=== PATIENT | male | born 2000 | race Caucasian/White ===

== ENCOUNTER 2021-05-07 11:58 | Emergency (ER) | payer BC, SELFPAY ==
[2021-05-07 12:05] VITALS: BP 127/66; PULSE 121; RESP 16; TEMP 37.6; O2SAT 100
--- NOTE | 2021-05-07 12:52 | ED.ABDPAIN ---
HPI - Abdominal Pain General Chief Complaint: Nausea/Vomiting/Diarrhea Stated Complaint: vomiting/diarrhea/abdominal pain/chills Time Seen by Provider: 05/07/21 12:00 Source: patient Mode of arrival: ambulatory Limitations: no limitations History of Present Illness HPI narrative: 20-year-old male presents to [facility] with complaints of generalized abdominal cramping, nausea, vomiting, diarrhea, fever, body aches and chills for the past 2 days. Patient reports that he has been unable to keep fluids down for the past 2 days. Patient denies sick contacts. Patient denies recent travel. Patient is a smoker. Patient denies dizziness, blurred vision, chest pain or shortness of breath. MD elicited complaint: abdominal pain Onset (ago): day(s) (2) Quality: cramping Exacerbating factors: nothing Relieving factors: nothing Associated symptoms: nausea, vomiting, diarrhea, fever and chills Related Data Home Medications Medication Instructions Recorded Confirmed Imodium A-D 10/22/19 Allergies Allergy/AdvReac Type Severity Reaction Status Date / Time No Known Allergies Allergy Verified 10/22/19 13:35 Review of Systems Constitutional: Constitutional: Reports chills, Reports fatigue, Reports fever(s) and Denies weakness ENT: Denies dysphagia, Denies epistaxis and Denies sore throat Cardiovascular: Cardiovascular: Denies chest pain and Denies radiating jaw, neck or arm pain Respiratory: Respiratory: Denies cough, Denies dyspnea and Denies wheezing Gastrointestinal: Gastrointestinal: Reports abdominal pain, Denies bloating, Denies constipation, Denies heartburn, Reports diarrhea, Reports nausea and Reports vomiting Genitourinary: Genitourinary: Denies hematuria, Denies oliguria, Denies dysuria and Denies urinary frequency Integumentary/Breasts: Skin/Breast: Denies rash Neurologic: Denies syncope [facility] Surgical History Surgical History (Updated 05/07/21 @ 12:54 by Stephanie Ga APRN) H/O lithotripsy History of placement of ear tubes Family History Family History (Updated 05/07/21 @ 12:54 by Stephanie Ga APRN) Mother Cervical cancer Social History Social History (Updated 05/07/21 @ 12:54 by Stephanie Ga APRN) Smoking status: Current every day smoker Gender identity (if verbalized by the patient): Male Comments At time of signature, I agree with nursing past medical, surgical, social and family history. There is no relevant family history pertinent to the presenting complaint. Exam Const: General: no acute distress and ill appearing Neck: Neck: normal visual inspection Resp: Effort & Inspection: normal respiratory effort, not labored and not tachypneic Auscultation: clear to auscultation bilaterally Cardio: Rate: not bradycardic and tachycardic Rhythm: regular rhythm Heart sounds: no murmurs GI: GI Palp: Yes Soft to palpation, Yes Tenderness to palpation present (GI) (Mild tenderness noted to right lower quadrant upon palpation), No Rigid due to palpation, No Hernia present and No Palpable mass present Auscultation: normal bowel sounds Back/Spine/Pelvis: Back: no CVA tenderness Skin: General skin exam: normal color Rashes: no rashes Wounds: no wounds Neuro: General: patient oriented x3 and moves all extremities Speech: normal speech Psych: Appearance: grossly normal Affect: normal affect Attitude: cooperative Thought content: Yes Normal thought content present Course Vital Signs Vital signs: Vital Signs Temperature 37.6 C H 05/07/21 12:05 Pulse Rate 121 H 05/07/21 12:05 Respiratory Rate 16 05/07/21 12:05 Blood Pressure 127/66 05/07/21 12:05 Pulse Oximetry 100 05/07/21 12:05 Temperature 37.6 C H 05/07/21 12:05 Pulse Rate 121 H 05/07/21 12:05 Respiratory Rate 16 05/07/21 12:05 Blood Pressure 127/66 05/07/21 12:05 Pulse Oximetry 100 05/07/21 12:05 Transfer Transfered to: Emiliano Transfer rationale: Abdominal pain, elevated heart
== END 2021-05-07 13:15 | disposition short-term general hospital (02) ==
PROVIDERS: Emergency Provider Nurse Practitioner Family
DX: R10.84 Generalized abdominal pain (principal); R11.2 Nausea with vomiting, unspecified
CPT/HCPCS: 81003; 99212; G0463

== ENCOUNTER 2021-05-07 13:16 | Emergency (ER) | payer BC, SELFPAY ==
[2021-05-07] VITALS (19 sets, daily range): BP systolic 97–124; BP diastolic 45–73; PULSE 78–98; RESP 18–20; TEMP 36.3; O2SAT 99–100
--- NOTE | ~2021-05-07 | CT_ITS ---
EXAMINATION: CT abdomen pelvis w con DATE: 05/07/2021 17:27 INDICATION: Generalized abdominal pain for 2 days TECHNIQUE: Computed tomography (CT) of the abdomen and pelvis was performed with 100 cc Omnipaque 350 intravenous contrast. The dose-length product was 568.57 mGy-cm. Automated exposure control and iter ative reconstruction technique were employed. COMPARISON: None. FINDINGS: Lung bases are unremarkable. Heart size normal. There is gynecomastia. No significant pleur al or pericardial effusion. The liver, spleen, pancreas, adrenal glands and kidneys are unremarkable. No significant vascular abnormality. No lymphadenopathy. Circumaortic left renal veins. Colonic dive rticulosis without evidence for diverticulitis. Normal appendix. Trace free fluid in the pelvis, nons pecific. No free air is identified. There is splenomegaly. Gallbladder is contracted. There is a Schm orl's node inferior endplate T11 with mild wedge shaped appearance to T11, likely chronic or developm ental. No acute osseous abnormality. IMPRESSION: 1. No acute abdominal abnormality. 2: Splenomegaly. 3: Trace free fluid in the pelvis,, nonspecific. 4: Gynecomastia. Reviewed, dictated and finalized at location A.
[2021-05-07 14:06] LABS: Basophils Percent Auto 0.6 % (0.2-1.2); Eosinophils Percent Auto 0.6 % (0-4.4); Hematocrit 46.1 % (42.0-52.0); Immature Granulocyte Absolute 0.01 K/mm3 (0.00-0.031); Immature Granulocyte Percent A 0.2 % (0-0.5); Lymphocytes Percent Auto 24.4 % (18.3-44.2); Mean Corpuscular HGB Conc 34.7 g/dl (32-36); Mean Corpuscular Hemoglobin 32.1 pg (26-34); Mean Corpuscular Volume 92.6 fl (80-100); Mean Platelet Volume 9.6 fl (7.4-10.4); Monocytes Absolute Auto 0.5 K/mm3 (0.1-0.6); Monocytes Percent Auto 9.8 % (2.6-8.5); Neutrophils Absolute Auto 3.2 K/mm3 (1.3-6.7); Neutrophils Percent Auto 64.4 % (45.5-73.1); Platelet Count Result 262 k/mm3 (150-375); Red Blood Count 4.98 M/mm3 (4.6-6.20); Red Cell Distribution Width 12.8 % (11.5-14.5); White Blood Count 4.9 K/mm3 (4.5-10.0)
[2021-05-07 14:09] LABS: Alanine Aminotransferase 10 U/L (4-50); Albumin Level 4.5 g/dL (3.5-5.1); Alkaline Phosphatase 54 U/L (38-126); Anion Gap 9 mmol/L (8-16); Aspartate Amino Transferase 20 U/L (17-59); Bilirubin,Total 0.5 mg/dL (0.2-1.3); Blood Urea Nitrogen 10 mg/dL (9-20); Calcium 9.4 mg/dL (8.4-10.2); Carbon Dioxide 25 mmol/L (22-30); Chloride 105 mmol/L (98-107); Estimated CRCL calculation 141 ml/min; Estimated Glomerular Filt Rate > 60; Glucose 102 mg/dL (75-110); Lipase 33 U/L (23-300); Potassium 3.9 mmol/L (3.4-5.0); Sodium 139 mmol/L (137-145)
[2021-05-07 14:46] LABS: Add Urine Microscopic? NO; Appearance Urine Clear (Clear); Bilirubin Urine Negative (Negative); Blood Urine Negative (Negative); Color Urine Yellow (Yellow); Glucose Urine UA Negative (Negative); Ketones Urine Negative (Negative); Leukocyte Esterase Ur Negative LEU/UL (Negative); Nitrate Urine Negative (Negative); Protein Urine Negative (Negative); Specific Grav Ur 1.028 (1.001-1.035); Urobilinogen Urine Negative mg/dL (<2.0)
--- NOTE | 2021-05-07 15:46 | PC.NURSE ---
girlfriend called to speak with a nurse, she states that her boyfriend has been in waiting room for 2 hours and he has appendicitis. Informed girlfriend we will get him back as soon as possible, that he has been triaged and some blood work completed.
[2021-05-07] MEDS: SODIUM CHLORIDE 0.9% IV 1,000 ML 999 ML IV CONT (16:55)
--- NOTE | 2021-05-07 18:11 | ED.ABDPAIN ---
HPI - Abdominal Pain General Chief Complaint: Abdominal Pain Stated Complaint: Diarrhea/vomiting Time Seen by Provider: 05/07/21 16:39 Source: patient and family Mode of arrival: ambulatory Limitations: no limitations History of Present Illness HPI narrative: Patient is 20 years old white female presents to the ED with nausea, vomiting and diarrhea started 2 nights ago, today been having mid abdominal cramps-like pain, associated with vomiting. Diarrhea resolved after 24 hours. Patient denies any fever, chills, chest pain, shortness of breath, headache. Related Data Home Medications Medication Instructions Recorded Confirmed Imodium A-D 10/22/19 Allergies Allergy/AdvReac Type Severity Reaction Status Date / Time No Known Allergies Allergy Verified 10/22/19 13:35 Review of Systems Review of Systems: Narrative: CONSTITUTIONAL: Denies fever, chills, or sweats. EYES: Denies visual changes, redness, or discharge. ENT: Denies rhinorrhea, congestion, sore throat, or otalgia. CARDIOVASCULAR: Denies chest pain, palpitations, or edema. RESPIRATORY: Denies cough or dyspnea. GASTROINTESTINAL: Denies abdominal pain, nausea, vomiting, or diarrhea. GENITOURINARY: Denies dysuria or hematuria. SKIN: Denies rash or itching. MUSCULOSKELETAL: Denies back pain, joint pain, or myalgia. NEUROLOGIC: Denies headache, numbness, or weakness. PSYCHIATRIC: Denies anxiety or depression. PMFSH Surgical History Surgical History H/O lithotripsy History of placement of ear tubes Family History Family History Mother Cervical cancer Social History Social History Smoking status: Current every day smoker Gender identity (if verbalized by the patient): Male Exam Narrative: Exam Narrative: General appearance: Well-developed, well-nourished Skin: Normal color Head: Normocephalic, nontraumatic Eyes: Clear conjunctiva ENT: Oropharynx normal, ears normal, nose normal Neck: Supple, nontender Chest and respiratory: Airway patent, no respiratory distress, no accessory muscle use Heart: Regular rate/rhythm Abdomen: Soft, nontender, no organomegaly, quiet bowel sounds Vascular: Normal peripheral pulses, normal capillary refill. Musculoskeletal: Normal range of motion, nontender back Neurologic: Alert and oriented ?3, OTOLARYNGOLOGY NURSE is normal as tested, no gross motor deficit Course Course Emergency Course: Stable Vital Signs Vital signs: Vital Signs Temperature 36.3 C L 05/07/21 13:46 Pulse Rate 92 05/07/21 13:46 Respiratory Rate 18 05/07/21 13:46 Blood Pressure 115/60 05/07/21 13:46 Pulse Oximetry 100 05/07/21 13:46 Temperature 36.3 C L 05/07/21 13:46 Pulse Rate 78 05/07/21 16:01 Respiratory Rate 18 05/07/21 16:01 Blood Pressure 110/45 L 05/07/21 17:31 Pulse Oximetry 100 05/07/21 17:45 MDM - Abdominal Pain MDM Narrative Medical decision making narrative: Gastroenteritis is my concern. Labs, IV fluid, CT abdomen pelvis with IV contrast Differential Diagnosis Differential diagnosis: Likely abdominal pain and gastroenteritis Lab Data Result diagrams: 05/07/21 13:52 05/07/21 13:52 Labs: Lab Results 05/07/21 05/07/21 05/07/21 Range/Units 13:52 13:52 14:02 WBC 4.9 (4.5-10.0) K/mm3 RBC 4.98 (4.6-6.20) M/mm3 Hgb 16.0 (14.0-18.0) g/dL Hct 46.1 (42.0-52.0) % MCV 92.6 (80-100) fl MCH 32.1 (26-34) pg MCHC 34.7 (32-36) g/dl RDW 12.8 (11.5-14.5) % Plt Count 262 (150-375) k/mm3 MPV 9.6 (7.4-10.4)
== END 2021-05-07 18:26 | disposition home or self-care (01) ==
PROVIDERS: Emergency Medicine; Emergency Provider Emergency Medicine
DX: R11.2 Nausea with vomiting, unspecified (principal); R10.33 Periumbilical pain; F17.200 Nicotine dependence, unspecified, uncomplicated; R16.1 Splenomegaly, not elsewhere classified
CPT/HCPCS: 36415; 74177; 80053; 81003; 83690; 85025; 96360; 99284; J7030; Q9967

== ENCOUNTER 2021-06-19 16:30 | Emergency (ER) | payer BC, SELFPAY ==
[2021-06-19 16:42] VITALS: BP 129/79; PULSE 93; RESP 16; TEMP 37; O2SAT 99
--- NOTE | 2021-06-19 16:44 | ED.URI ---
HPI - URI/Sore Throat General Chief Complaint: Ear Stated Complaint: SORE THROAT Time Seen by Provider: 06/19/21 16:44 Source: patient and RN notes reviewed Mode of arrival: ambulatory Limitations: no limitations History of Present Illness HPI Narrative: 20-year-old male presents to the [facility] with complaints of a sore throat, states that he has had sinus drainage for about 1 week. Denies fevers. No ear pain or sinus pain. Reports some sinus drainage. No cough, chest pain, shortness of breath. No abdominal pain nausea vomiting or diarrhea. No treatment [employer] Related Data Allergies Allergy/AdvReac Type Severity Reaction Status Date / Time No Known Allergies Allergy Verified 10/22/19 13:35 Review of Systems Review of Systems: All systems reviewed & are unremarkable except as noted in HPI and below Constitutional: Constitutional: Reports no additional constitutional complaints, Denies chills and Denies fever(s) Eyes: Eyes: Reports no additional eye complaints and Denies change in vision ENT: Reports as per HPI, Denies dysphagia, Denies vertigo, Denies dizziness, Denies nasal congestion and Reports sore throat Cardiovascular: Cardiovascular: Reports no additional cardiovascular complaints and Denies chest pain Respiratory: Respiratory: Reports no additional respiratory complaints, Denies cough and Denies dyspnea Gastrointestinal: Gastrointestinal: Reports no additional gastrointestinal complaints, Denies abdominal pain, Denies nausea and Denies vomiting Musculoskeletal: Musculoskeletal: Reports no additional musculoskeletal complaints Integumentary/Breasts: Skin/Breast: Reports system reviewed and no additional complaints, except as docu Neurologic: Reports system reviewed and no additional complaints, except as documented Allergic/Immunologic: Allergic/Immunologic: Reports no additional allergic/immunologic complaints [facility] Past Medical History Medical History (Updated 06/21/21 @ 15:23 by Kristin Delcid) No significant medical problems Surgical History Surgical History H/O lithotripsy History of placement of ear tubes Family History Family History Mother Cervical cancer Social History Social History Smoking status: Current every day smoker Gender identity (if verbalized by the patient): Male Comments At the time of my signature, I reviewed and agree with the nursing past medical, surgical, social, and family history. There is no relevant family history pertinent to the patient complaint. Exam Const: General: healthy appearing, no acute distress and alert Nutritional Appearance: well nourished Orientation/consciousness: patient oriented x3 Limitations: no limitations HENMT: Head: normal to inspection Ears: external ears normal, TM's normal bilaterally and EAC's normal General nose exam: Normal external nose present, Normal nares present and Nasal discharge present clear Face and sinus: normal facial exam Mouth: Yes Normal oral and palatal mucosa present Throat: uvula midline and postnasal drainage Eyes: Conjunctivae: conjunctivae normal Pupils: Equal, round and reactive pupils present Neck: Neck: normal visual inspection, no lymphadenopathy and no meningeal signs Chest: Chest palpation & inspection: normal inspection of the chest Resp: Effort & Inspection: normal respiratory effort and no use of accessory muscles Auscultation: clear to auscultation bilaterally, no crackles, no rales, no rhonchi and no wheezes Cardio: Rate: regular rate Rhythm: regular rhythm GI: GI Palp: Yes Soft to palpation and No Tenderness to palpation present (GI) : Male General Exam: Yes normal external exam Testes: Testes normal Back/Spine/Pelvis: Back: no CVA tenderness Skin: General skin exam: normal color Rashes: no rashes Wounds: no wounds Neuro: Gene
== END 2021-06-19 17:15 | disposition home or self-care (01) ==
PROVIDERS: Emergency Provider Nurse Practitioner
DX: J06.9 Acute upper respiratory infection, unspecified (principal); H61.22 Impacted cerumen, left ear; R09.82 Postnasal drip; F17.200 Nicotine dependence, unspecified, uncomplicated
CPT/HCPCS: 69210; 87081; 87880; 99213; G0463

== ENCOUNTER 2022-04-21 12:13 | Emergency (ER) | payer BC, SELFPAY ==
--- NOTE | 2022-04-21 12:14 | ED.BACK ---
HPI - Back Pain/Injury General Chief Complaint: Back Pain/Injury Stated Complaint: lower back injury Time Seen by Provider: 04/21/22 12:13 Source: patient Mode of arrival: ambulatory Limitations: no limitations History of Present Illness HPI Narrative: Mr. Remy is a 21-year-old male patient presenting to the clinic today with complaints of low back pain x1 day. 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 States his pain is a lot worse this morning. He denies any saddle anesthesia or loss of bowel or bladder. He has not taken anything for the pain. States the pain is across the low back. Rates pain 7 out of 10 currently. States that he struggled to get his boots on this morning due to the pain. MD elicited complaint: back pain Related Data Allergies Allergy/AdvReac Type Severity Reaction Status Date / Time No Known Allergies Allergy Verified 04/21/22 12:21 Review of Systems Review of Systems: Pertinent positives per HPI. Patient denies any fever, chills, rash, headache, visual changes, dizziness, cough, runny nose, sore throat, shortness of breath, chest pain, palpitations, nausea, vomiting, diarrhea, constipation, abdominal pain, or any urinary issues. PMFSH Past Medical History Medical History No significant medical problems Surgical History Surgical History H/O lithotripsy History of placement of ear tubes Family History Family History Mother Cervical cancer Social History Social History Smoking status: Current every day smoker Gender identity (if verbalized by the patient): Male Comments At the time of my signature, I reviewed and agree with the nursing past medical, surgical, social, and family history. There is no relevant family history pertinent to the patient complaint. Exam Narrative: General: Well-developed, well nourished, in no apparent distress Head: Normocephalic, atraumatic. Cardio: Regular rate and rhythm, s1 and s2 normal, no murmur appreciated. Resp: Clear to auscultation bilaterally, no rhonchi, rales, wheezing or rubs. Musculoskeletal: No deformity, tenderness to palpation across the lower back/paraspinous musculature, no tenderness to direct palpation over the lumbar spine, pain in the low back with bending however straight leg test was negative bilaterally, bilateral lower extremity strength is strong and equal, 2+ patellar reflexes bilaterally, grossly normal range of motion, peripheral pulse strong, no edema, no cyanosis, normal gait and station Course Course Emergency Course: Portions of this record may have been created with voice recognition software. Level of Care: Express Care Visit Vital Signs Vital signs: Vital signs reviewed MDM - Back Pain/Injury MDM Narrative Medical decision making narrative: At the time of visit patient is resting comfortably on the exam table. I suspect the patient has a low back strain. Prescription for Flexeril sent to the pharmacy-sedation precautions were reviewed, supportive measures were discussed with the patient he voiced understanding of discharge instructions and agrees to the treatment plan. Differential Diagnosis Differential diagnosis: Likely lumbar radiculopathy, sciatica and strain of lumbar region Discharge Plan Discharge Clinical Impression: Lumbar strain Patient Disposition: Home, Self-Care Condition: Stable Instructions: Antibiotic Form, Low Back Strain (ED), Lower Back Exercises (ED) Additional Instructions: Use proper body mechanics when lifting May apply ice or heat to the affected area. May apply Aspercreme, blue emu, or lidocaine to the affected area Low back exercises as discussed Tylenol/Motrin as needed for pain. F
[2022-04-21 12:18] VITALS: BP 134/84; PULSE 87; RESP 16; TEMP 36.3; O2SAT 100
== END 2022-04-21 12:32 | disposition home or self-care (01) ==
PROVIDERS: Emergency Provider Nurse Practitioner Family
DX: S39.012A Strain of muscle, fascia and tendon of lower back, initial encounter (principal); X50.9XXA Other and unspecified overexertion or strenuous movements or postures, initial encounter; F17.200 Nicotine dependence, unspecified, uncomplicated
CPT/HCPCS: 99213; G0463